=== PATIENT | male | born 1985 | race Caucasian/White ===

== ENCOUNTER 2018-03-13 15:03 | Emergency (ER) | payer OTHER ==
[~2018-03-13] VITALS: Ht 170.2 cm; Wt 97.1 kg
[2018-03-13 15:11] VITALS: Ht 170.2 cm; Wt 97.1 kg
[2018-03-13 16:00] VITALS: BP 136/93
== END 2018-03-13 16:00 | disposition home or self-care (01) ==
LOC: ED 15:03
DX: S60.412A Abrasion of right middle finger, initial encounter (principal); W27.0XXA Contact with workbench tool, initial encounter; Y93.89 Activity, other specified; Y92.89 Other specified places as the place of occurrence of the external cause; Y99.8 Other external cause status
CPT/HCPCS: 90715

== ENCOUNTER 2018-03-15 14:25 | Emergency (ER) | payer OTHER ==
[~2018-03-15] VITALS: Ht 170.2 cm; Wt 98.0 kg
[2018-03-15 14:28] VITALS: BP 131/81; Ht 170.2 cm; Wt 98.0 kg
== END 2018-03-15 16:33 | disposition home or self-care (01) ==
LOC: ED 14:25
DX: S61.212D Laceration without foreign body of right middle finger without damage to nail, subsequent encounter (principal); W31.2XXD Contact with powered woodworking and forming machines, subsequent encounter